=== PATIENT | female | born 1980 | race Caucasian/White ===

== ENCOUNTER 2017-01-22 14:45 | Outpatient (RCR) | payer BC ==
[~2017-01-22 14:45] MED LIST: CELEXA40 MG PO; MIRENA52 MG IU
[2017-02-17] MEDS ORDERED: EPITOL ×2 (16:47→16:48)
== END 2017-03-11 10:36 ==
LOC: WSPT 14:45
DX: M54.6 Pain in thoracic spine (principal)

== ENCOUNTER 2017-02-17 16:37 | Emergency (ER) | payer BC ==
[~2017-02-17] VITALS: Ht 167.6 cm; Wt 59.0 kg
[2017-02-17 16:39] VITALS: TEMP 98.4
[2017-02-17] MEDS ORDERED: EPITOL ×2 (16:47→16:48)
[2017-02-17 17:10] LABS: PH 5 (5-8); SQUAMOUS EPITHELIAL 0-2 /hpf; URINE APPEARANCE Clear; URINE BACTERIA Rare /hpf; URINE BILIRUBIN Negative (NEGATIVE); URINE BLOOD 2+ (NEGATIVE); URINE COLOR Straw; URINE GLUCOSE Negative (NEGATIVE); URINE KETONE Negative (NEGATIVE); URINE RBC 0-2 /hpf; URINE UROBILINOGEN Negative (NEGATIVE); URINE WBC 0-2 /hpf
[2017-02-17 17:23] LABS: BASO # 0.1 (0.0-0.2); EOS # 0.1 (0.0-0.7); GRAN # 4.7 (1.4-6.5); GRAN % 67.2 % (42.2-75.2); HEMOGLOBIN 12.3 g/dl (12.5-16.0); LYMPH # 1.8 (1.2-3.4); LYMPH % 25.2 % (20.0-51.0); MEAN CELL VOLUME 103 fl (80.0-100.0); MEAN CORPUSCULAR HEMOGLOBIN 35 pg (27.0-31.0); MEAN CORPUSCULAR HGB CONC 34 g/dl (33.0-37.0); MEAN PLATELET VOLUME 8.9 fl (7.4-10.4); MONO # 0.4 (0.1-0.6); MONO % 5.2 % (1.7-9.3); PLATELET COUNT 239 K/mm3 (130-400); RED BLOOD COUNT 3.48 M/mm3 (4.10-5.30); REDCELL DISTRIBUTION WIDTH-CV 12.3 % (11.5-14.5)
[2017-02-17 17:35] LABS: ADJUSTED CALCIUM 8.3 mg/dL (8.4-10.2); ALBUMIN 3.9 gm/dL (3.5-5.0); BILIRUBIN,TOTAL 0.3 mg/dL (0.0-1.0); CALCIUM 8.2 mg/dL (8.4-10.2); CREATININE, serum 0.53 mg/dL (0.52-1.25); POTASSIUM 3.6 mmol/L (3.4-5.0); TOTAL PROTEIN 6.5 gm/dL (6.4-8.2)
[2017-02-17 19:01] VITALS: BP 128/89; PULSE 86
== END 2017-02-17 18:18 | disposition home or self-care (01) ==
LOC: COL.ER 16:37
PROVIDERS: Family Medicine
DX: E86.0 Dehydration (principal); F10.120 Alcohol abuse with intoxication, uncomplicated; Y90.8 Blood alcohol level of 240 mg/100 ml or more; R55 Syncope and collapse; G40.909 Epilepsy, unspecified, not intractable, without status epilepticus
CPT/HCPCS: J7030